=== PATIENT | male | born 1985 | race Caucasian/White ===

== ENCOUNTER 2019-04-23 18:07 | Emergency (ER) | payer OTHER ==
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
[2019-04-23] MEDS ORDERED: Morphine 4 MG/ML Syringe IVPUSH ONE (18:16)
[2019-04-23] MEDS ORDERED: Ondansetron 4 MG/2 ML SDV IVPUSH ONE (18:16)
[2019-04-23] MEDS ORDERED: Sodium Chloride 0.9% 1,000 ML IV ONE (18:16)
[2019-04-23] MEDS ORDERED: Diphtheria,Pertussis(Acell),Tetanus Vaccine 0.5 ML Syringe IM ONE (18:16)
[2019-04-23] MEDS ORDERED: Morphine 2 MG/ML Syringe IVPUSH ONE (18:42)
[2019-04-23 18:48] LABS: BLOOD UREA NITROGEN,BUN 15 mg/dL (7.0-18.0); CARBON DIOXIDE,CO2 23.6 mmol/L (21.0-32.0); CHLORIDE,CL 105 mmol/L (98-107); GLUCOSE RANDOM 134 mg/dL (74-106); POTASSIUM,K 3.8 mmol/L (3.5-5.1); SODIUM,NA 141 mmol/L (136-148)
[2019-04-23] MEDS ORDERED: Silver Sulfadiazine 1% Crm 50 GM Tube TOP ONE (18:56)
== END 2019-04-23 19:32 | disposition home or self-care (01) ==
LOC: MW.ED 18:07
DX: T23.242A Burn of second degree of multiple left fingers (nail), including thumb, initial encounter (principal); T22.10XA Burn of first degree of shoulder and upper limb, except wrist and hand, unspecified site, initial encounter; Z23 Encounter for immunization; X08.8XXA Exposure to other specified smoke, fire and flames, initial encounter
CPT/HCPCS: 16020; 80053; 82550; 85025; 90471; 90715; 93005; 96361; 96374; 96375; 99285; A9270; J2270; J2405; J7040